=== PATIENT | female | born 1990 | race Caucasian/White ===

== ENCOUNTER 2017-07-05 05:23 | Day surgery (SDC) | payer BC, OTHER ==
[~2017-07-05] VITALS: Ht 172.7 cm; Wt 68.8 kg
--- NOTE | ~2017-07-05 | O ---
[facility] [place] [address] OPERATIVE REPORT Name: MARINA GASPAR Room #: DEP [facility]..#: [id number] Admission: 07/05/17 Attend Phys: Wander Carson MD Discharge: 07/05/17 Date of : 88 Report #: [id number] THIS REPORT FOR: //name// CC: Harini Carson DATE OF SERVICE: 07/05/2017 PREOPERATIVE DIAGNOSIS: Recently incarcerated umbilical or epigastric hernia. POSTOPERATIVE DIAGNOSES: 1. Epigastric hernia, recent incarceration. 2. Umbilical hernia. PROCEDURE PERFORMED: Repair of epigastric hernia that was recently incarcerated and also repair of umbilical hernia. This was performed with a medium-sized Ventralex patch. ANESTHESIA: General. COMPLICATIONS: None. BLOOD LOSS: 5 mL. SURGEON: Wander Carson MD PROCEDURE NOTE: With the patient under general anesthesia, abdomen was prepped and draped in sterile fashion. Timeout was performed. A 0.25% Marcaine was used to anesthetize the skin. A curvilinear incision was made infraumbilically. The infraumbilical incision curvilinear was made because the patient had a navel ring superiorly. The hernia bulge was felt was palpated slightly above the umbilicus. After incising through the skin and subcutaneous tissue, the umbilicus was identified. This was followed down posteriorly and where I thought the skin ended, dissection was carried underneath the skin and there was some properitoneal fat that pushed through hernia sac. This was consistent with an umbilical hernia. The fascial defect was found, measuring about 7-8 mm. The peritoneum was actually opened, which I then closed off with 4-0 PDS. The fascial edges identified. The hernia sac was then placed in the properitoneal space. Dissecting superiorly, the hernia that she was complaining about was then found. This was actually in the epigastric location just above the umbilicus. There was an intact fascial bridge between the 2 hernia defects. This hernia that protruded sac was about 2.5 cm. This did have a bloodshot appearance inferiorly. This was free from the fascial defect. This was then freed and reduced back in the properitoneal space. The bridge between the 2 defects was then opened up. Connected these 2 separate defects into 1 for ease of repair. The fascia was then lifted anteriorly, properitoneal dissection was [facility] [address] [place] [address] OPERATIVE REPORT Name: MARINA GASPAR Room #: DEP [facility] Bryson.Sudarshan.#: [id number] Admission: 07/05/17 Attend Phys: Wander Carson MD Discharge: 07/05/17 Date of : 88 Report #: [id number] then performed pushing the peritoneum down. Once this was frees, a medium-sized Ventralex patch was placed in the properitoneal space. This mesh opened up well. The fascia edges was trimmed and cleaned off. The fascia defect actually was oriented transversely. Irrigation was performed before the mesh was placed. The fascia edge was then brought together with 0 Prolene horizontal mattress fashion x 3. This incorporated the strap. The strap was then trimmed at the fascia level. Irrigation was performed. The skin of the umbilicus was sewn down to the fascia with 4-0 PDS. Subcutaneous tissue was also closed with 4-0 PDS, 5-0 PDS was used to close the skin. Steri-Strip was applied. Mastisol and Steri-Strip applied. A fluff gauze was placed in the umbilicus to push it down. A second gauze placed over this. OpSite was placed over the dressing. The patient tolerated the procedure well and was taken to recovery room. By: [id number] Wander Carson MD /salvador
[2017-07-05] MEDS ORDERED: XANAX1 MG PO (12:11)
== END 2017-07-05 14:35 | disposition home or self-care (01) ==
LOC: OR 05:23 → TBA 05:23 → OR 14:35
DX: K43.6 Other and unspecified ventral hernia with obstruction, without gangrene (principal); K42.9 Umbilical hernia without obstruction or gangrene
CPT/HCPCS: 50010; 50101; 50130; 50386; 50403; 56524; 56525; 62110; 62900; 70005